=== PATIENT | female | born 1995 | race Caucasian/White ===

== ENCOUNTER → 2017-01-14 | Outpatient (CLI) | payer BC ==
--- NOTE | 2017-01-14 16:01 | DIAGNOSTIC IMAGING REPORT ---
MRI OF THE LEFT ANKLE WITHOUT IV CONTRAST CLINICAL HISTORY: Left ankle pain. COMPARISON STUDY: No priors. TECHNIQUE: MRI of the left ankle is performed utilizing various T1 and T2-weighted sequences in the axial, sagittal, and coronal planes. IV contrast was not administered for this examination. Note that interpretation is suboptimal without plain film correlate. FINDINGS: Normal marrow signal intensity is preserved throughout the visualized bony structures. There is no MRI evidence of fracture. The ankle mortise is intact. There is no evidence of osteochondral defect within the talar dome. The Achilles tendon is normal in morphology and signal intensity. There is no ankle joint effusion. The anterior, posterior, and peroneal tendons are preserved. The visualized plantar fascia is normal in morphology and signal intensity. The anterior tibiofibular as well as the anterior talofibular ligaments are intact. The deltoid and spring ligaments are intact as imaged. The regional musculature is normal in bulk and signal intensity. Survey images of the foot show edema and drop in T1 signal in the medial sesamoid at the first MTP. IMPRESSION: 1. No abnormality is identified in the ankle. 2. Survey images of the foot show evidence of medial sesamoiditis at the first MTP. Clinical correlation will be required. Dictated: 01/14/2017 3:46 PM Transcribed: 01/14/2017 4:01 PM Juan Electronically signed by: Michael Chi M.D. 01/14/2017 4:14 PM Dictated Date/Time: 01/14/2017 3:46 PM
--- NOTE | 2017-01-14 16:08 | DIAGNOSTIC IMAGING REPORT ---
MRI left foot and ankle LEFT LOWER EXT NON JOINT W/O CLINICAL HISTORY: M25.572 719.47 pain TECHNIQUE: Multi axial MRI acquisition COMPARISON STUDY: None FINDINGS: Signal characteristics of the osseous structures appear unremarkable. Findings of mild degenerative change of the intertarsal and tarsal metatarsal, as well as subtalar joint region. There is no significant bone marrow replacing process. All major ligamentous and tendinous structures are intact. Plantar fascia shows unremarkable signal character. IMPRESSION: Mild to moderate degenerative change throughout all major osseous structures including the intertarsal region and first metatarsal phalangeal joint.. Study is otherwise negative. Electronically signed by: Mj Carlton M.D. 01/14/2017 4:07 PM Dictated Date/Time: 01/14/2017 3:59 PM
== END | disposition home or self-care (01) ==
LOC: C.MRI 14:10
PROVIDERS: ATTEND Internal Medicine
DX: M25.572 Pain in left ankle and joints of left foot (principal)

== ENCOUNTER → 2017-01-20 | Outpatient (CLI) | payer BC ==
--- NOTE | 2017-01-20 14:10 | DIAGNOSTIC IMAGING REPORT ---
BONE SCAN 3 PHASE LIMITED CLINICAL HISTORY: Lower extremity pain and COMPARISON STUDY: MRI dated 01/14/2017 FINDINGS: The patient was injected with 27 mCi of technetium 99m MDP. A flow sequence of both lower extremities was performed. Flow appears symmetric. Blood pool images were normal. Three-hour delayed images of both lower extremities were acquired. There is minimal increased activity involving the left foot at the level of the first metatarsal phalangeal joint. This is likely secondary to the medial sesamoiditis as described on the recent MRI study. IMPRESSION: Subtle focus of increased activity within the left foot at the level of the first metatarsal phalangeal joint. This likely is secondary to the medial sesamoiditis described on the recent MRI examination. The study is otherwise normal Electronically signed by: Benito Guerin M.D. 01/20/2017 2:09 PM Dictated Date/Time: 01/20/2017 2:07 PM
== END | disposition home or self-care (01) ==
LOC: C.NUCL 10:18
PROVIDERS: ATTEND Family Medicine
DX: M79.606 Pain in leg, unspecified (principal); R93.7 Abnormal findings on diagnostic imaging of other parts of musculoskeletal system

== ENCOUNTER → 2017-02-03 | Outpatient (CLI) | payer BC ==
--- NOTE | 2017-02-03 11:45 | DIAGNOSTIC IMAGING REPORT ---
LEFT LOWER EXTREMITY VENOUS DOPPLER CLINICAL HISTORY: Left leg edema. COMPARISON STUDY: No previous studies for comparison. TECHNIQUE: Sonography of the deep venous system of the left lower extremity was performed. Compression and augmentation were evaluated. FINDINGS: The left common femoral, superficial femoral and popliteal veins were compressible. Augmentation was normal. Flow was shown within the deep calf vessels. IMPRESSION: No evidence of deep venous thrombus within the left lower extremity. Electronically signed by: Brgiido David M.D. 02/03/2017 11:43 AM Dictated Date/Time: 02/03/2017 11:43 AM
== END | disposition home or self-care (01) ==
LOC: C.ULTRBC 11:17
PROVIDERS: ATTEND Internal Medicine
DX: R60.0 Localized edema (principal)